=== PATIENT | male | born 2000 | race Caucasian/White ===

== ENCOUNTER 2025-11-25 16:33 | Emergency (ER) | payer OTHER, SELFPAY ==
--- NOTE | ~2025-11-25 | XR_ITS ---
XR ankle LT min 3V 11/25/2025 16:50 INDICATION: Left ankle pain PROCEDURE: 4 views left ankle COMPARISON: No prior studies for comparison. FINDINGS: Fracture, dislocation or subluxation is not identified. Mild lateral soft tissue swelling. The soft tissues appear within normal limits. No foreign bodies are identified. IMPRESSION: 1: NO ACUTE BONE OR JOINT ABNORMALITY IDENTIFIED. Reviewed, dictated and finalized at location O. [facility] [employer]
[2025-11-25 16:33] VITALS: BP 129/69; PULSE 72; RESP 16; TEMP 36.4; O2SAT 97
--- NOTE | 2025-11-25 16:45 | ED_ITS ---
HPI - Extremity Injury (Lower) General Chief Complaint: Extremity Injury, Lower Stated Complaint: LEFT ANKLE PAIN Time Seen by Provider: 11/25/25 16:37 Source: patient and family Mode of arrival: ambulatory Limitations: no limitations History of Present Illness HPI Narrative: 25-year-old with a history of seizure disorder was brought in by family with a complaint of left ankle pain. Patient states that he was going down the ramp rolled his ankle having pain with walking. Has no other injuries MD complaint: ankle injury (Left) Onset (ago): hour(s) (5) Type of Injury: inversion Place: home Severity: moderate Relieving factors: nothing Exacerbating factors: movement Context: other (Rolled ankle) Associated symptoms: swelling Other symptoms: none Review of Systems Review of Systems: All systems reviewed & are unremarkable except as noted in HPI and below Constitutional: Constitutional: Reports no additional constitutional complaints Eyes: Eyes: Reports no additional eye complaints ENT: Reports system reviewed and no additional complaints, except as documented Cardiovascular: Cardiovascular: Reports no additional cardiovascular complaints Respiratory: Respiratory: Reports no additional respiratory complaints Musculoskeletal: Musculoskeletal: Reports as per HPI Integumentary/Breasts: Skin/Breast: Reports system reviewed and no additional complaints, except as docu Exam Narrative: GENERAL: Well-appearing, well-nourished, and in no acute distress. HEAD: Normocephalic, atraumatic. EYES: PERRLA and EOMI. ENT: Nares clear, no rhinorrhea or epistaxis. Mucous membranes moist. NECK: Supple. CHEST: Clear to auscultation. No respiratory distress. HEART: Regular rate and rhythm. No murmur heard. Normal peripheral pulses. EXTREMITIES: Normal range of motion. No edema. Examination of the left ankle shows very minimal soft tissue swelling. No deformity SKIN: Warm, dry, no rash. NEURO: No focal deficits. Alert and oriented x3. PSYCH: Normal mood and affect. Course Course Emergency Course: ankle Xray was done , no fx or dislocation ,notified pt and family advised CHRISTINA wrap , ibuprofen for pain Vital Signs Vital signs: Vital Signs Temperature 36.4 C L 11/25/25 16:33 Pulse Rate 72 11/25/25 16:33 Respiratory Rate 16 11/25/25 16:33 Blood Pressure 129/69 11/25/25 16:33 Pulse Oximetry 97 11/25/25 16:33 Oxygen Delivery Room Air 12/30/25 16:33 Temperature 36.4 C L 11/25/25 16:33 Pulse Rate 72 11/25/25 16:33 Respiratory Rate 16 11/25/25 16:33 Blood Pressure 129/69 11/25/25 16:33 Pulse Oximetry 97 11/25/25 16:33 Oxygen Delivery Room Air 11/25/25 16:33 MDM Differential Diagnosis Differential Diagnosis: Ankle fracture, sprain Imaging Data My impression: NO fx or dislocation Discharge Plan Discharge Clinical Impression: Ankle sprain and strain Patient Disposition: Home Condition: Stable Instructions: Ankle Sprain (DC) Additional Instructions: take ibuprofen for pain as needed Patient Language: [place] Prescriptions: New ibuprofen 600 mg tablet 600 mg PO TID PRN (Reason: pain) Qty: 20 0RF Follow-up/Referrals: João Wall M.D. [Primary Care Provider, Family Practice] Time of Disposition: 16:54
== END 2025-11-25 17:13 | disposition home or self-care (01) ==
LOC: CHSED 17:09
PROVIDERS: Emergency Provider Family Medicine; PCP Family Medicine
DX: S93.402A Sprain of unspecified ligament of left ankle, initial encounter (principal); S96.912A Strain of unspecified muscle and tendon at ankle and foot level, left foot, initial encounter; X50.0XXA Overexertion from strenuous movement or load, initial encounter
CPT/HCPCS: 73610; 99283